=== PATIENT | female | born 1955 | race Hispanic/Latino ===

== ENCOUNTER 2019-04-25 18:10 | Emergency (ER) | payer OTHER, SELFPAY ==
[2019-04-25] MEDS ORDERED: ACETAMINOPHEN EXTRA STRENGTH 500 MG TABLET ONE (19:10)
[2019-04-25] MEDS ORDERED: IPRATROPIUM/ALBUTEROL SULFATE 3 ML SOLUTION IH ONE (19:38)
[2019-04-25] MEDS ORDERED: ONDANSETRON ODT 4 MG TAB ONE (19:50)
[2019-04-25] MEDS ORDERED: OSELTAMIVIR PHOSPHATE 75 MG CAP ONE (19:50)
== END 2019-04-25 20:22 | disposition home or self-care (01) ==
LOC: EDH 18:10
DX: J10.1 Influenza due to other identified influenza virus with other respiratory manifestations (principal); H92.03 Otalgia, bilateral; I10 Essential (primary) hypertension; Z88.0 Allergy status to penicillin; Z79.899 Other long term (current) drug therapy
CPT/HCPCS: 71046; 82948; 87804; 94640